=== PATIENT | male | born 1985 | race Caucasian/White ===

== ENCOUNTER → 2024-05-05 14:41 | Outpatient (REF) | payer OTHER, SELFPAY | LOC: EMG 14:41 | PROVIDERS: ATTENDING PHYSICIAN Orthopaedic Surgery Hand Surgery; FAMILY PHYSICIAN Family Medicine | DX: M79.642 Pain in left hand (principal); M79.641 Pain in right hand | CPT/HCPCS: 95886; 95911 ==